=== PATIENT | male | born 1955 | race Caucasian/White ===

== ENCOUNTER 2017-10-24 23:51 | Emergency (ER) | payer MEDICARE ==
[~2017-10-24] VITALS: Wt 65.3 kg
[~2017-10-24 23:51] MED LIST: ASPIR 8181 MG PO; NITROGLYCERIN0.4 MG SL; PROVENTIL HFA6.7 GM INH
[2017-10-25] MEDS ORDERED: POTASSIUM CHLO20 ME1 PO (01:49)
--- NOTE | 2017-10-27 22:39 | EKG ---
[facility] [address] [facility] [place] [address] Signed Normal sinus rhythm Anteroseptal infarct , age undetermined Abnormal ECG No previous ECGs available Confirmed by LENIN WEINSTEIN MD ([id number]) on 10/27/2017 10:38:53 PM Electronically Signed By: LENIN WEINSTEIN MD 10/27/17 2239 PATIENT NAME: MELLISSA DÍAZ Electrocardiogram DATE OF : 53 PHYSICIAN: LENIN WEINSTEIN MD REPORT #: [id number] REPORT IS CONFIDENTIAL AND NOT TO BE RELEASED WITHOUT AUTHORIZATION
== END 2017-10-25 02:14 | disposition home or self-care (01) ==
LOC: ED 23:51
PROC: 0T9B70Z Drainage of Bladder with Drainage Device, Via Natural or Artificial Opening (ICD-10-PCS; principal; 2017-10-24)
DX: S00.03XA Contusion of scalp, initial encounter (principal); T69.9XXA Effect of reduced temperature, unspecified, initial encounter; J44.9 Chronic obstructive pulmonary disease, unspecified; I25.2 Old myocardial infarction; F17.200 Nicotine dependence, unspecified, uncomplicated; I25.10 Atherosclerotic heart disease of native coronary artery without angina pectoris; G89.29 Other chronic pain; M50.30 Other cervical disc degeneration, unspecified cervical region; M48.061 Spinal stenosis, lumbar region without neurogenic claudication; E83.51 Hypocalcemia; E87.6 Hypokalemia; R79.1 Abnormal coagulation profile; Z79.899 Other long term (current) drug therapy; Z98.890 Other specified postprocedural states; Z79.82 Long term (current) use of aspirin; Z95.5 Presence of coronary angioplasty implant and graft; V48.5XXA Car driver injured in noncollision transport accident in traffic accident, initial encounter
CPT/HCPCS: 51702; 70450; 71045; 71260; 72040; 72125; 72128; 72131; 72170; 74177; 80053; 81001; 82803; 83605; 83690; 85025; 85610; 86850; 86900; 86901; 93005; 93010; 96374; 99291; G0390; G0480; J3010; Q9967

== ENCOUNTER 2018-12-23 18:39 | Emergency (ER) | payer MEDICARE ==
[~2018-12-23] VITALS: Ht 170.2 cm; Wt 66.2 kg
[~2018-12-23 18:39] MED LIST changes: +COREG6.25 MG; +JANTOVEN6 MG PO; +LIPITOR80 MG; +LISINOPRIL5 MG; +POTASSIUM CHLO20 ME1 PO; +PREDNISONE10 MG PO
--- OUTSIDE RECORDS SUMMARY | 2018-12-23 18:42 | XMS ---
PreManage Notification: MELLISSA DÍAZ Security Cashier Checker Events No recent Security Events currently on file CRITERIA MET - Group Notification - [facility] - Has Care Guidelines CARE PROVIDERS TAMMIE RAMIREZ Nurse Practitioner Current PHONE: [phone] Guidelines Source: [facility] Guidelines Date: 02/02/2017 Care Coordination: THIS PATIENT NEEDS HELP IN FINDING A PCP AND RESOURCES FOR MEDICATIONS . UNABLE TO REACH BY PHONE SO FAR, IF COMES INTO ANY ED, PLEASE SPEAK TO PATIENT ABOUT THESE ISSUES. PT IS RETURNING TO ED'S FOR MEDS FOR HIS COPD. [place] VISIT COUNT (12 MO.) [address] [facility]. TOTAL 4 NOTE: Visits indicate total known visits. ED/UCC VISIT TRACKING (12 MO.) 12/23/2018 18:40 [facility] TYPE: Emergency COMPLAINT: - SOB 10/05/2018 19:16 [facility] TYPE: Emergency COMPLAINT: - CHEST PAIN/COPD 07/27/2018 07:22 [facility] [place] TYPE: Emergency COMPLAINT: - SOB 07/04/2018 16:00 [facility] [place] TYPE: Emergency COMPLAINT: - DIFFICULTY BREATHING, SENT BY DIAGNOSES: - Presence of aortocoronary bypass graft - Chronic obstructive pulmonary disease, unspecified - Personal history of nicotine dependence - Atherosclerotic heart disease of [place] coronary artery without angina pectoris - Presence of coronary angioplasty implant and graft - Chest pain, unspecified - Old myocardial infarction - Generalized abdominal pain INPATIENT VISIT TRACKING (12 MO.) 10/05/2018 19:17 [facility] TYPE: [facility] COMPLAINT: - COPD EXACERBATION DIAGNOSES: - Old myocardial infarction - intermediate card tender (current) use of aspirin - Nicotine dependence, unspecified, uncomplicated - Cervicalgia - Other chronic pain - Atherosclerotic heart disease of [place] coronary artery without angina pectoris - Unspecified osteoarthritis, unspecified site - Hyperlipidemia, unspecified - Gastro-esophageal reflux disease without esophagitis - Dorsalgia, unspecified - Hypoxemia - Other nursing home (current) drug therapy - intermediate card tender (current) use of anticoagulants - Emphysema, unspecified - Essential (primary) hypertension - Presence of coronary angioplasty implant and graft - Personal history of other venous thrombosis and embolism - Shortness of breath [email or web address]
--- NOTE | 2018-12-23 22:37 | EKG ---
[facility] [address] [facility] [place], [place] [address] Signed Sinus bradycardia Low voltage QRS Cannot rule out Anteroseptal infarct (cited on or before 25-OCT-2017) Abnormal ECG When compared with ECG of 05-OCT-2018 19:27, No significant change was found Confirmed by TAMMIE SMILEY MD ([id number]) on 12/23/2018 10:37:36 PM Electronically Signed By: TAMMIE SMILEY MD 12/23/18 2237 PATIENT NAME: MELLISSA DÍAZ Electrocardiogram DATE OF : 53 PHYSICIAN: TAMMIE SMILEY MD REPORT #: [id number] REPORT IS CONFIDENTIAL AND NOT TO BE RELEASED WITHOUT AUTHORIZATION
== END 2018-12-23 22:12 | disposition home or self-care (01) ==
LOC: ED 18:39
DX: J44.1 Chronic obstructive pulmonary disease with (acute) exacerbation (principal); Z91.14 Patient's other noncompliance with medication regimen; I25.2 Old myocardial infarction; I10 Essential (primary) hypertension; K21.9 Gastro-esophageal reflux disease without esophagitis; E78.5 Hyperlipidemia, unspecified; F17.200 Nicotine dependence, unspecified, uncomplicated; Z79.899 Other long term (current) drug therapy; Z79.82 Long term (current) use of aspirin; Z79.01 Long term (current) use of anticoagulants
CPT/HCPCS: 71046; 80053; 83735; 83880; 84484; 85025; 93005; 93010; 94640; 96374; 99285-25; J2930